=== PATIENT | male | born 1970 | race Caucasian/White ===

== ENCOUNTER → 2017-06-13 | Outpatient (CLI) | payer BC ==
--- NOTE | 2017-06-13 15:00 | CARD ---
APPROVED REPORT INDICATION Dyspnea PROCEDURE The patient underwent an Exercise Stress Test using the [facility] Protocol. Blood pressure, heart rate, a nd EKG were monitored. An Echocardiogram was performed by ski technician in four stages in quad fashion. At peak stress four se lected images were obtained and placed side by side with resting images for comparison. STRESS ECHO FINDINGS The resting Echocardiogram showed normal left ventricular contractility with an estimated Ejection Fr action of about 60 %. Normal augmentation of myocardial wall segments using a 16 segment model. Test Type: Exercise Stress Nurse/Tech: toshia rosenthal Test Indications: shortness of air Cardiac History and Allergies: HTN, SEE EHR Medications: NONE STATED Medical History: NON SMOKER, SEE EHR Resting ECG: SR Resting Heart Rate: 81 bpm Resting Blood Pressure: 128/68mmHg Pretest Chest Pain: No chest pain Nurse/Tech Notes PT STATES HE JUST STOPPED TAKING HIS BP MEDS BEACAUSE THEY WERERN'T WORKING, HE TAKES HIS BP DAILY AT HOME. BEFORE PT STARTING WALKING HR NOTED TO BE 109 BP WITHOUT PVC. PT BP STABLE AND PT BREATHING NO RMAL. Consent: The procedure was explained to the patient in lay terms. Informed consent was witnessed. Osmin eout was entered into Personal[employer]. History and Stress Test performed by TOSHIA ROSENTHAL Stress Symptoms PT ABLE TO WALK WITH MINIMAL SOA, WALKING STOPPED DUE TO PT PROGRESSIVE HR THAT CONTINUALLY RAPIDLY E LEVATED TO 180 BPM. PT ALSO HAD LEG FATIGUE. POST EXERCISE Reason for Termination: Reached target heart rate Target HR: 147 Max HR: 181 bpm 105% of Maximum Predicted HR: 173 bpm Exercise duration: 7:01 min:sec, 3 Stage Exercise capacity: 10.0METs Max Blood Pressure: 178/98mmHg Blood Pressure response to exercise: Normal blood pressure response during stress. Heart Rate response to exercise: HR ELEVATED CONTINUOUSLY Chest Pain: No. Arrhythmia: No. ST Change: No. INTERPRETATION Stress EKG Conclusion: Baseline EKG showed sinus rhythm. No ischemic changes at peak stress. No arr hythmias. RESTING ECG Rhythm: Sinus STRESS ECG Rhythm: Sinus Tachycardia Arrhythmias: None Stress EKG shows no significant changes. Preliminary Notification Critical Value: No <Conclusion> Treadmill exercise stress echocardiogram did not show any evidence of ischemia or infarct. Normal left ventricle systolic function with ejection fraction estimated at 60%. Patient had good activity tolerance. Low risk for cardiac events.
== END | disposition home or self-care (01) ==
LOC: ECHO 13:02
PROVIDERS: ATTEND Internal Medicine Cardiovascular Disease
DX: I10 Essential (primary) hypertension (principal); R06.02 Shortness of breath
CPT/HCPCS: 93017; 93350